=== PATIENT | female | born 1960 | race Caucasian/White ===

== ENCOUNTER 2025-01-21 07:05 | Inpatient (IN) | payer MEDICAID, MEDICARE ==
[~2025-01-21] VITALS: Ht 162.6 cm; Wt 57.6 kg
[2025-01-21 07:50] LABS: HEMATOCRIT. 26.5 % (36.0-48.0); HEMOGLOBIN. 8.2 g/dL (12.0-16.0); MEAN CORPUSCULAR HEMOGLOBIN 21.9 pg (28.0-32.0); MEAN CORPUSCULAR VOLUME 70.4 fL (81.0-99.0); MEAN PLATELET VOLUME 7.2 fl (7.4-10.4); PLATELET 725 x1000/uL (130-400); RED BLOOD CELL COUNT 3.76 mill/uL (4.2-5.4); RED CELL DISTRIBUTION WIDTH 19.8 % (11.6-14.6); WHITE BLOOD COUNT 24.6 x1000/uL (4.5-11.0)
[2025-01-21 08:04] LABS: CARBON DIOXIDE 24 mEq/L (21-32); CHLORIDE 97 mEq/L (98-107); POTASSIUM 3.1 mEq/L (3.5-5.1); SODIUM 136 mEq/L (136-145)
[2025-01-21 08:05] LABS: CALCIUM 9.4 mg/dL (8.7-10.4)
[2025-01-21 08:09] LABS: CREATININE 1.4 mg/dL (0.6-1.0)
[2025-01-21 08:10] LABS: DIFFERENTIAL COMMENT 1; GLUCOSE 216 mg/dL (70-105); UREA NITROGEN BLOOD 40 mg/dL (9-23)
[2025-01-21 08:11] LABS: ALANINE AMINOTRANSFERASE < 7 IU/L (10-49); TROPONIN I HIGH SENSITIVITY 23 ng/L (3.0-34)
[2025-01-21 08:12] LABS: ALBUMIN 3.4 g/dL (3.2-4.8); ASPARTATE AMINOTRANSFERASE 9 IU/L (<34); BILIRUBIN TOTAL 0.3 mg/dL (0.1-1.0); PROTEIN TOTAL 7.2 g/dL (6.0-8.3)
[2025-01-21 08:18] LABS: BILIRUBIN DIRECT < 0.1 mg/dL (<=3.0)
[2025-01-21] MEDS: VANCOMYCIN 1G PREMIX 200 ML IV STA (08:51)
[2025-01-21] MEDS: PIPERACILLIN/TAZO 3.375G/100ML 100 ML IV STA (08:51)
[2025-01-21 10:56] LABS: ANISOCYTOSIS 2+; MICROCYTOSIS 1+; NUCLEATED RED BLOOD CELLS 1 /100 WBC; PLATELET ESTIMATE MARKEDLY INCREASED
[2025-01-21] MEDS ORDERED: MORPHINE SULFATE 2 MG/ML INJ (NOT FOR IM USE) IV PRN (11:00)
[2025-01-21] MEDS ORDERED: IPRATROPIUM/ALBUTEROL 0.5-3(2.5)MG/3ML NEB NEB PRN (11:00)
[2025-01-21] MEDS ORDERED: ZOLPIDEM TARTRATE 5MG TABLET PO PRN (11:00)
[2025-01-21] MEDS ORDERED: MAGNESIUM/ALUMINUM HYDROXIDE/SIMETHICONE 30ML UDC PO PRN (11:00)
[2025-01-21] MEDS ORDERED: DEXTROSE 50% WATER 50ML SYRINGE IV PRN (11:00)
[2025-01-21] MEDS ORDERED: ONDANSETRON HCL 4MG/2ML INJ IV PRN (11:00)
[2025-01-21 11:05] VITALS: BP 129/60; PULSE 78; RESP 18; TEMP 36.8
[2025-01-21] MEDS ORDERED: NALOXONE HCL 0.4MG/ML VIAL IV PRN (11:45)
[2025-01-21 12:00] VITALS: BP 140/66; PULSE 73; RESP 14; TEMP 37; O2SAT 97
[2025-01-21] MEDS ORDERED: VANCOMYCIN 1.5GM/250ML 250 ML IV NR (12:15)
[2025-01-21] MEDS: INSULIN LISPRO 100 UNITS/ML SUBCUT SCH (12:15)
[2025-01-21] MEDS: SODIUM CHLORIDE 0.9% 1,000 ML IV SCH (12:23)
[2025-01-21] MEDS: ENOXAPARIN 40MG/0.4ML SYR SUBCUT SCH (12:37)
[2025-01-21] MEDS: POTASSIUM CHLORIDE 20MEQ TABLET SR PO NR (12:37)
[2025-01-21] MEDS: BLOOD SUGAR DIAGNOSTIC STRIP TEST SCH (12:46)
[2025-01-21] MEDS: PIPERACILLIN/TAZO 3.375G/50ML 50 ML IV SCH (14:46)
[2025-01-21 14:53] LABS: HEPATITIS B SURFACE ANTIGEN NEGATIVE (Negative)
[2025-01-21 15:14] LABS: HEPATITIS C AB NON REACTIVE (Neg) (Negative)
[2025-01-21] MEDS: HYDROCODONE/ACETAMINOPHEN 5/325MG TABLET PO PRN (15:46)
[2025-01-21 16:00] VITALS: BP 138/67; PULSE 87; RESP 17; TEMP 36.8; O2SAT 97
[2025-01-21] MEDS: VANCOMYCIN 1.5GM/250ML 250 ML IV NR (18:31)
[2025-01-21 19:13] LABS: CLARITY URINE CLOUDY (CLEAR); COLOR URINE YELLOW (YELLOW); GLUCOSE URINE NEGATIVE (NEGATIVE); KETONES URINE NEGATIVE (NEGATIVE); LEUKOCYTE ESTERASE URINE 3+ (NEGATIVE); NITRITE URINE NEGATIVE (NEGATIVE); OCCULT BLOOD URINE 1+ (NEGATIVE); PH URINE 5.5 (4.5-8.0); PROTEIN URINE 2+ (NEGATIVE); SPECIFIC GRAVITY URINE 1.015 (1.005-1.030)
[2025-01-21 19:20] LABS: *AMPHETAMINES SCREEN URINE NEGATIVE (NEGATIVE); *BARBITURATES SCREEN URINE NEGATIVE (NEGATIVE); *BENZODIAZEPINES SCREEN URINE NEGATIVE (NEGATIVE)
[2025-01-21 19:21] LABS: *COCAINE SCREEN URINE NEGATIVE (NEGATIVE); CANNABINOID URINE SCREEN NEGATIVE (NEGATIVE); ECSTASY MDMA SCREEN URINE NEGATIVE (NEGATIVE); METHADONE URINE SCREEN NEGATIVE (NEGATIVE); OPIATES URINE SCREEN NEGATIVE (NEGATIVE); PHENCYCLIDINE URINE SCREEN NEGATIVE (NEGATIVE)
[2025-01-21 19:28] LABS: WBC URINE 15-25 /hpf (0-2)
[2025-01-21 19:29] LABS: BACTERIA URINE 4+; SQUAMOUS EPITHELIAL CELL URINE 1+ /lpf (RARE/1+)
[2025-01-21 20:00] VITALS: BP 136/73; PULSE 91; RESP 19; TEMP 36.4; O2SAT 95
[2025-01-22] VITALS: BP 133/78; PULSE 77; RESP 18; TEMP 36.7; O2SAT 95
[2025-01-22 04:00] VITALS: BP 128/69; PULSE 89; RESP 19; TEMP 36.2; O2SAT 96
[2025-01-22 08:00] VITALS: BP 140/51; PULSE 87; RESP 19; TEMP 36.3; O2SAT 97
[2025-01-22] MEDS: PANTOPRAZOLE SODIUM 40 MG/VIAL IV SCH (09:00)
[2025-01-22 12:00] VITALS: BP 133/78; PULSE 88; RESP 17; TEMP 36.4; O2SAT 98
[2025-01-22] MEDS ORDERED: VANCOMYCIN 1G PREMIX 200 ML IV SCH (13:00)
[2025-01-22 14:12] LABS: HEMATOCRIT. 25.3 % (36.0-48.0); HEMOGLOBIN. 7.9 g/dL (12.0-16.0); MEAN CORPUSCULAR HEMOGLOBIN 22.2 pg (28.0-32.0); MEAN CORPUSCULAR HGB CONC 31.2 g/dL (31.0-37.0); MEAN CORPUSCULAR VOLUME 71.2 fL (81.0-99.0); MEAN PLATELET VOLUME 6.9 fl (7.4-10.4); RED BLOOD CELL COUNT 3.55 mill/uL (4.2-5.4); RED CELL DISTRIBUTION WIDTH 19.8 % (11.6-14.6)
[2025-01-22 14:18] LABS: CALCIUM 8.5 mg/dL (8.7-10.4)
[2025-01-22 14:23] LABS: CREATININE 1.3 mg/dL (0.6-1.0)
[2025-01-22 14:42] LABS: POTASSIUM 2.7 mEq/L (3.5-5.1)
[2025-01-22 14:43] LABS: DIFFERENTIAL COMMENT 1
[2025-01-22] MEDS ORDERED: POTASSIUM CHLORIDE 40 MEQ in DEXT 5% WATER 230 ML IV ONE (15:45)
[2025-01-22 16:00] VITALS: BP 137/81; PULSE 87; RESP 19; TEMP 36.4; O2SAT 99
[2025-01-22] MEDS ORDERED: KCL 20MEQ/100ML X 2 FOR TOTAL KCL 40MEQ/200ML IV SCH (16:30)
[2025-01-22 17:38] LABS: ANISOCYTOSIS 1+; HYPOCHROMASIA 1+; MICROCYTOSIS 2+; PLATELET ESTIMATE MARKEDLY INCREASED
[2025-01-22 17:40] LABS: PLATELET 601 x1000/uL (130-400)
[2025-01-22] MEDS: KCL 20MEQ/100ML X 2 FOR TOTAL KCL 40MEQ/200ML IV SCH (17:49)
[2025-01-22] MEDS: VANCOMYCIN 750MG/250ML 250 ML IV SCH (17:50)
[2025-01-22 18:31] LABS: PHOSPHORUS 4.3 mg/dL (2.5-4.9)
[2025-01-22 18:41] LABS: CREATINE KINASE < 15 IU/L (34-145)
[2025-01-22 20:00] VITALS: BP 119/66; PULSE 90; RESP 18; TEMP 36.8; O2SAT 91
[2025-01-22] MEDS: IOHEXOL-350 100 ML BOTTLE ONE (23:13)
[2025-01-23] VITALS (18 sets, daily range): BP systolic 130–183; BP diastolic 66–117; PULSE 72–103; RESP 16–32; TEMP 36.1–36.8; O2SAT 91–99
[2025-01-23 06:08] LABS: HEMATOCRIT. 22.7 % (36.0-48.0); HEMOGLOBIN. 7.4 g/dL (12.0-16.0); MEAN CORPUSCULAR HEMOGLOBIN 23.1 pg (28.0-32.0); MEAN CORPUSCULAR HGB CONC 32.6 g/dL (31.0-37.0); MEAN CORPUSCULAR VOLUME 70.7 fL (81.0-99.0); MEAN PLATELET VOLUME 7.1 fl (7.4-10.4); PLATELET 517 x1000/uL (130-400); RED BLOOD CELL COUNT 3.21 mill/uL (4.2-5.4); RED CELL DISTRIBUTION WIDTH 19.6 % (11.6-14.6)
[2025-01-23 06:25] LABS: POTASSIUM 2.9 mEq/L (3.5-5.1)
[2025-01-23 06:26] LABS: CALCIUM 8.6 mg/dL (8.7-10.4)
[2025-01-23 06:31] LABS: CREATININE 1.3 mg/dL (0.6-1.0)
[2025-01-23 07:18] LABS: DIFFERENTIAL COMMENT 1; WHITE BLOOD COUNT 49.4 x1000/uL (4.5-11.0)
[2025-01-23 08:35] LABS: ANISOCYTOSIS 1+; MICROCYTOSIS 2+; PLATELET ESTIMATE INCREASED
[2025-01-23 08:58] LABS: INR 1.3; PROTHROMBIN TIME 13.5 sec (9.6-11.0)
[2025-01-23] MEDS ORDERED: LIDOCAINE HCL 1% 10 MG/ML 10ML VIAL ONE (10:06)
[2025-01-23] MEDS ORDERED: FENTANYL CITRATE/PF 50MCG/ML 2ML VIAL ONE (10:31)
[2025-01-23] MEDS: KCL 20MEQ/100ML PREMIX 100 ML IV SCH (11:00)
[2025-01-23] MEDS: LIDOCAINE HCL 1% 10 MG/ML 10ML VIAL ONE (11:05)
[2025-01-23 12:04] LABS: PHOSPHORUS 4.3 mg/dL (2.5-4.9)
[2025-01-24] VITALS: BP 138/70; PULSE 78; RESP 19; TEMP 36; O2SAT 94
[2025-01-24 04:00] VITALS: BP 129/80; PULSE 93; RESP 18; TEMP 36.1; O2SAT 97
[2025-01-24 06:32] LABS: CARBON DIOXIDE 19 mEq/L (21-32); CHLORIDE 111 mEq/L (98-107); POTASSIUM 3.7 mEq/L (3.5-5.1); SODIUM 141 mEq/L (136-145)
[2025-01-24 06:34] LABS: CALCIUM 8.9 mg/dL (8.7-10.4)
[2025-01-24 06:38] LABS: CREATININE 1.1 mg/dL (0.6-1.0); GLUCOSE 85 mg/dL (70-105); UREA NITROGEN BLOOD 33 mg/dL (9-23)
[2025-01-24 06:40] LABS: PHOSPHORUS 3.9 mg/dL (2.5-4.9)
[2025-01-24 07:16] LABS: HEMATOCRIT. 23.9 % (36.0-48.0); HEMOGLOBIN. 7.5 g/dL (12.0-16.0); MEAN CORPUSCULAR HEMOGLOBIN 22.7 pg (28.0-32.0); MEAN CORPUSCULAR HGB CONC 31.4 g/dL (31.0-37.0); MEAN CORPUSCULAR VOLUME 72.3 fL (81.0-99.0); MEAN PLATELET VOLUME 7.2 fl (7.4-10.4); PLATELET 541 x1000/uL (130-400); RED BLOOD CELL COUNT 3.31 mill/uL (4.2-5.4); RED CELL DISTRIBUTION WIDTH 19.9 % (11.6-14.6); WHITE BLOOD COUNT 37.6 x1000/uL (4.5-11.0)
[2025-01-24 07:18] LABS: DIFFERENTIAL COMMENT 1
[2025-01-24 08:00] VITALS: BP 139/76; PULSE 77; RESP 16; TEMP 36.6; O2SAT 95
[2025-01-24] MEDS: VANCOMYCIN 500MG/100ML IV SCH (10:52)
[2025-01-24 12:00] VITALS: BP 157/83; PULSE 83; RESP 18; TEMP 36.6; O2SAT 95
[2025-01-24 15:27] LABS: ANISOCYTOSIS 2+; MICROCYTOSIS 2+; PLATELET ESTIMATE INCREASED
[2025-01-24 16:00] VITALS: BP 174/89; PULSE 97; RESP 18; TEMP 36.7; O2SAT 95
[2025-01-24] MEDS: CLONIDINE 0.1MG TABLET PO PRN (17:01)
[2025-01-24 20:00] VITALS: BP 138/70; PULSE 89; RESP 16; TEMP 36.2; O2SAT 95
[2025-01-25] VITALS: BP 151/57; PULSE 16; RESP 16; TEMP 36.1; O2SAT 95
[2025-01-25 04:00] VITALS: BP 137/75; PULSE 16; RESP 16; TEMP 36.3; O2SAT 95
[2025-01-25 08:00] VITALS: BP 172/78; PULSE 88; RESP 18; TEMP 36.7; O2SAT 100
[2025-01-25] MEDS: HYDRALAZINE 20MG/ML VIAL IV PRN (11:04)
[2025-01-25 16:00] VITALS: BP 150/72; PULSE 95; RESP 18; TEMP 36.4; O2SAT 96
[2025-01-25 20:00] VITALS: BP 148/82; PULSE 81; RESP 16; TEMP 36.6; O2SAT 96
[2025-01-25 23:54] LABS: HEMATOCRIT. 22.4 % (36.0-48.0); MEAN CORPUSCULAR HEMOGLOBIN 21.6 pg (28.0-32.0); MEAN CORPUSCULAR HGB CONC 30.9 g/dL (31.0-37.0); MEAN CORPUSCULAR VOLUME 69.9 fL (81.0-99.0); MEAN PLATELET VOLUME 6.9 fl (7.4-10.4); PLATELET 485 x1000/uL (130-400); POTASSIUM 3.2 mEq/L (3.5-5.1); RED BLOOD CELL COUNT 3.21 mill/uL (4.2-5.4); RED CELL DISTRIBUTION WIDTH 20.3 % (11.6-14.6); WHITE BLOOD COUNT 18.1 x1000/uL (4.5-11.0)
[2025-01-25 23:55] LABS: CALCIUM 8.8 mg/dL (8.7-10.4)
[2025-01-26] VITALS: BP 152/62; PULSE 87; RESP 16; TEMP 36.3; O2SAT 97
[2025-01-26 00:15] LABS: DIFFERENTIAL COMMENT 1
[2025-01-26 00:18] LABS: HEMOGLOBIN. 6.9 g/dL (12.0-16.0)
[2025-01-26 03:18] LABS: ANISOCYTOSIS 3+; HYPOCHROMASIA 2+; MICROCYTOSIS 3+
[2025-01-26 03:19] LABS: PLATELET ESTIMATE SLIGHTLY INCREASED
[2025-01-26 04:00] VITALS: BP 164/90; PULSE 73; RESP 16; TEMP 36.3; O2SAT 97
[2025-01-26 04:09] VITALS: BP 164/90; PULSE 73; RESP 16; TEMP 36.3; O2SAT 96
[2025-01-26 07:25] LABS: CHLORIDE 110 mEq/L (98-107); POTASSIUM 3.4 mEq/L (3.5-5.1); SODIUM 140 mEq/L (136-145)
[2025-01-26 07:26] LABS: CALCIUM 8.9 mg/dL (8.7-10.4); CARBON DIOXIDE 19 mEq/L (21-32)
[2025-01-26 07:31] LABS: CREATININE 0.9 mg/dL (0.6-1.0); GLUCOSE 85 mg/dL (70-105); UREA NITROGEN BLOOD 19 mg/dL (9-23)
[2025-01-26 08:00] VITALS: BP 114/60; PULSE 64; RESP 14; TEMP 36.1; O2SAT 96
[2025-01-26] MEDS: POTASSIUM CHLORIDE 20MEQ TABLET SR PO NR (11:45)
[2025-01-26 12:00] VITALS: BP 158/81; PULSE 87; RESP 18; TEMP 36.9; O2SAT 97
[2025-01-26 16:00] VITALS: BP 173/80; PULSE 63; RESP 18; TEMP 36.6; O2SAT 97
[2025-01-26 16:38] LABS: HEMOGLOBIN. 7.8 g/dL (12.0-16.0); MEAN CORPUSCULAR HGB CONC 30.2 g/dL (31.0-37.0); MEAN PLATELET VOLUME 7.2 fl (7.4-10.4); PLATELET 584 x1000/uL (130-400); RED BLOOD CELL COUNT 3.56 mill/uL (4.2-5.4); RED CELL DISTRIBUTION WIDTH 20.1 % (11.6-14.6); WHITE BLOOD COUNT 22.3 x1000/uL (4.5-11.0)
[2025-01-26 16:39] LABS: DIFFERENTIAL COMMENT 1
[2025-01-26 17:01] LABS: ANISOCYTOSIS 1+; HYPOCHROMASIA 1+; MICROCYTOSIS 2+; PLATELET ESTIMATE INCREASED
[2025-01-26] MEDS: HYDROCODONE/ACETAMINOPHEN 5/325MG TABLET PO PRN (19:41)
[2025-01-26] MEDS: LACTOBACILLUS GG CAPSULE PO SCH (19:42)
[2025-01-27 06:49] LABS: CHLORIDE 114 mEq/L (98-107); POTASSIUM 3.9 mEq/L (3.5-5.1)
[2025-01-27 06:50] LABS: CARBON DIOXIDE 19 mEq/L (21-32); SODIUM 143 mEq/L (136-145)
[2025-01-27 06:51] LABS: CALCIUM 8.3 mg/dL (8.7-10.4); HEMOGLOBIN. 7.3 g/dL (12.0-16.0); MEAN CORPUSCULAR HGB CONC 30.5 g/dL (31.0-37.0); MEAN CORPUSCULAR VOLUME 72.1 fL (81.0-99.0); MEAN PLATELET VOLUME 6.8 fl (7.4-10.4); PLATELET 429 x1000/uL (130-400); RED BLOOD CELL COUNT 3.33 mill/uL (4.2-5.4); RED CELL DISTRIBUTION WIDTH 20.2 % (11.6-14.6); WHITE BLOOD COUNT 16.9 x1000/uL (4.5-11.0)
[2025-01-27 06:55] LABS: CREATININE 0.7 mg/dL (0.6-1.0); GLUCOSE 76 mg/dL (70-105)
[2025-01-27 06:56] LABS: UREA NITROGEN BLOOD 16 mg/dL (9-23)
[2025-01-27 07:22] LABS: DIFFERENTIAL COMMENT 1
[2025-01-27 08:00] VITALS: BP 156/57; PULSE 100; RESP 18; TEMP 36.7; O2SAT 97
[2025-01-27] MEDS ORDERED: SULF1TAB48 MT (11:55)
[2025-01-27 12:00] VITALS: BP 122/55; PULSE 99; RESP 18; TEMP 36.6; O2SAT 99
[2025-01-27 16:05] VITALS: BP_SYST 129; PULSE 87; TEMP 97.7; O2SAT 61
[2025-01-28 14:04] LABS: ANISOCYTOSIS 2+; MICROCYTOSIS 1+; OVALOCYTES 1+; PLATELET ESTIMATE SLIGHTLY INCREASED
== END 2025-01-27 17:05 | disposition home health service (06) | DRG 871 ==
LOC: ER 07:37 → EDBEDREQ 08:15 → 5WST 09:06 → EDBEDREQTM 09:13 → EDBEDREQ 09:13
PROVIDERS: ADMIT Internal Medicine; ATTEND Internal Medicine
PROC: 0F9030Z Drainage of Liver with Drainage Device, Percutaneous Approach (ICD-10-PCS; principal; 2025-01-23)
PROC: 0T9030Z Drainage of Right Kidney with Drainage Device, Percutaneous Approach (ICD-10-PCS; 2025-01-23)
DX: A41.9 Sepsis, unspecified organism (principal); N15.1 Renal and perinephric abscess; N17.9 Acute kidney failure, unspecified; N39.0 Urinary tract infection, site not specified; R18.8 Other ascites; I31.39 Other pericardial effusion (noninflammatory); K57.30 Diverticulosis of large intestine without perforation or abscess without bleeding; E87.6 Hypokalemia; N20.0 Calculus of kidney; R63.0 Anorexia; I12.9 Hypertensive chronic kidney disease with stage 1 through stage 4 chronic kidney disease, or unspecified chronic kidney disease; N18.9 Chronic kidney disease, unspecified; D50.9 Iron deficiency anemia, unspecified; E11.22 Type 2 diabetes mellitus with diabetic chronic kidney disease; B96.20 Unspecified Escherichia coli [E. coli] as the cause of diseases classified elsewhere; E63.9 Nutritional deficiency, unspecified; I25.10 Atherosclerotic heart disease of native coronary artery without angina pectoris; G31.9 Degenerative disease of nervous system, unspecified; Z87.442 Personal history of urinary calculi
CPT/HCPCS: 36415; 71260; 74176; 74177; 77012; 80048; 80076; 80202; 80305; 81003; 82550; 82962; 83021; 83036; 83735; 84100; 84145; 84484; 85025; 85660; 86705; 86850; 86870; 86900; 86920; 87077; 87186; 87340; 93005; 93970; 99152; 99153; 99285; A4606; C1729; C1760; C1769; J0360; J1650; J2003; J2270; J2470; J2543; J3010; J3370; J3480; J7030; L8514; Q9967; G0500

== ENCOUNTER 2025-04-15 09:04 | Inpatient (IN) | payer MEDICARE, OTHER ==
[~2025-04-15] VITALS: Ht 144.8 cm; Wt 41.7 kg
[~2025-04-15 09:04] MED LIST: SULF1TAB48 MT
[2025-04-15 09:59] LABS: BASOPHILS % 0.4 % (0.0-2.0); EOSINOPHILS % 0.6 % (0.0-5.0); HEMATOCRIT. 30.4 % (36.0-48.0); HEMOGLOBIN. 9.8 g/dL (12.0-16.0); LYMPHOCYTES % 15.7 % (20.0-50.0); MEAN CORPUSCULAR HEMOGLOBIN 26.5 pg (28.0-32.0); MEAN CORPUSCULAR HGB CONC 32.3 g/dL (31.0-37.0); MEAN PLATELET VOLUME 7.2 fl (7.4-10.4); MONOCYTES % 7.6 % (2.0-8.0); NEUTROPHILS % 75.7 % (40.0-76.0); PLATELET 447 x1000/uL (130-400); RED BLOOD CELL COUNT 3.71 mill/uL (4.2-5.4); RED CELL DISTRIBUTION WIDTH 15.9 % (11.6-14.6); WHITE BLOOD COUNT 10.3 x1000/uL (4.5-11.0)
[2025-04-15 10:10] LABS: INR 1.1; PARTIAL THROMBOPLASTIN TIME 30.3 sec (23.4-31.0); PROTHROMBIN TIME 11.9 sec (9.6-11.0)
[2025-04-15 10:17] LABS: CHLORIDE 101 mEq/L (98-107); POTASSIUM 3.2 mEq/L (3.5-5.1); SODIUM 138 mEq/L (136-145)
[2025-04-15 10:19] LABS: CALCIUM 9.8 mg/dL (8.7-10.4); CARBON DIOXIDE 25 mEq/L (21-32)
[2025-04-15 10:24] LABS: CREATININE 0.9 mg/dL (0.6-1.0); GLUCOSE 99 mg/dL (70-105); UREA NITROGEN BLOOD 28 mg/dL (9-23)
[2025-04-15 10:25] LABS: ALANINE AMINOTRANSFERASE < 7 IU/L (10-49); ASPARTATE AMINOTRANSFERASE 12 IU/L (<34)
[2025-04-15 10:26] LABS: ALBUMIN 4.6 g/dL (3.2-4.8); BILIRUBIN DIRECT < 0.1 mg/dL (<=3.0); BILIRUBIN TOTAL 0.3 mg/dL (0.1-1.0); PROTEIN TOTAL 8.6 g/dL (6.0-8.3)
[2025-04-15] MEDS: POTASSIUM CHLORIDE 20MEQ/PACKET PO ONE (11:01)
[2025-04-15 12:23] LABS: CLARITY URINE CLEAR (CLEAR); COLOR URINE YELLOW (YELLOW); GLUCOSE URINE NEGATIVE (NEGATIVE); KETONES URINE NEGATIVE (NEGATIVE); LEUKOCYTE ESTERASE URINE TRACE (NEGATIVE); NITRITE URINE NEGATIVE (NEGATIVE); OCCULT BLOOD URINE TRACE (NEGATIVE); PH URINE 5.5 (4.5-8.0); PROTEIN URINE 2+ (NEGATIVE); SPECIFIC GRAVITY URINE 1.015 (1.005-1.030)
[2025-04-15 12:33] LABS: SQUAMOUS EPITHELIAL CELL URINE 1+ /lpf (RARE/1+)
[2025-04-15 12:34] LABS: MUCUS URINE TRACE /lpf (< = 2+)
[2025-04-15 12:35] LABS: BACTERIA URINE TRACE; RBC URINE 0-2 /hpf (0-2)
[2025-04-15] MEDS ORDERED: ONDANSETRON HCL 4MG/2ML INJ IV PRN (15:30)
[2025-04-15] MEDS ORDERED: IPRATROPIUM/ALBUTEROL 0.5-3(2.5)MG/3ML NEB HHN PRN (15:30)
[2025-04-15] MEDS ORDERED: CLONIDINE 0.1MG TABLET PO PRN (15:30)
[2025-04-15] MEDS ORDERED: POTASSIUM CHLORIDE 20MEQ TABLET SR PO ONE (15:30)
[2025-04-15] MEDS ORDERED: DOCUSATE SODIUM 100MG CAPSULE PO PRN (15:30)
[2025-04-15] MEDS ORDERED: HYDROCODONE/ACETAMINOPHEN 5/325MG TABLET PO PRN (15:30)
[2025-04-15] MEDS ORDERED: ACETAMINOPHEN 325MG TABLET PO PRN (15:30)
[2025-04-15] MEDS ORDERED: NALOXONE HCL 0.4MG/ML VIAL IV PRN (15:45)
[2025-04-15 16:52] VITALS: BP 169/71; PULSE 70; RESP 18; TEMP 36.8
[2025-04-15] MEDS: VANCOMYCIN 1GM/200ML PMX (BAXTER) IV NR (17:33)
[2025-04-15 20:00] VITALS: BP 149/75; PULSE 69; RESP 18; TEMP 36.6; O2SAT 97
[2025-04-15] MEDS: PIPERACILLIN/TAZO 3.375G/50ML 50 ML IV SCH (21:26)
[2025-04-15 21:36] LABS: HEPATITIS B SURFACE ANTIGEN NEGATIVE (Negative)
[2025-04-15 21:58] LABS: HEPATITIS C AB NON REACTIVE (Neg) (Negative)
[2025-04-16] VITALS: BP 146/68; PULSE 67; RESP 18; TEMP 36.7; O2SAT 98
[2025-04-16 04:00] VITALS: BP 136/61; PULSE 73; RESP 17; TEMP 37.1; O2SAT 97
[2025-04-16] MEDS: VANCOMYCIN 500MG PREMIX 100 ML IV SCH ×2 (05:11→17:34)
[2025-04-16 08:00] VITALS: BP 133/65; PULSE 68; RESP 19; TEMP 36.4; O2SAT 99
[2025-04-16] MEDS ORDERED: IOHEXOL-350 100 ML BOTTLE ONE (09:26)
[2025-04-16 12:00] VITALS: BP 134/72; PULSE 75; RESP 18; TEMP 36.3; O2SAT 99
[2025-04-16 16:00] VITALS: BP 128/67; PULSE 70; RESP 19; TEMP 36.6; O2SAT 98
[2025-04-16 16:03] LABS: BASOPHILS % 0.4 % (0.0-2.0); EOSINOPHILS % 1.8 % (0.0-5.0); HEMATOCRIT. 28.2 % (36.0-48.0); HEMOGLOBIN. 9.2 g/dL (12.0-16.0); LYMPHOCYTES % 13.4 % (20.0-50.0); MEAN CORPUSCULAR HEMOGLOBIN 26.3 pg (28.0-32.0); MEAN CORPUSCULAR HGB CONC 32.7 g/dL (31.0-37.0); MEAN CORPUSCULAR VOLUME 80.5 fL (81.0-99.0); MEAN PLATELET VOLUME 7.4 fl (7.4-10.4); MONOCYTES % 8.9 % (2.0-8.0); NEUTROPHILS % 75.5 % (40.0-76.0); PLATELET 403 x1000/uL (130-400)
[2025-04-16 16:11] LABS: CARBON DIOXIDE 24 mEq/L (21-32); CHLORIDE 101 mEq/L (98-107); POTASSIUM 3.6 mEq/L (3.5-5.1); SODIUM 136 mEq/L (136-145)
[2025-04-16 16:12] LABS: CALCIUM 9.3 mg/dL (8.7-10.4)
[2025-04-16 16:16] LABS: CREATININE 0.8 mg/dL (0.6-1.0); GLUCOSE 121 mg/dL (70-105)
[2025-04-16 16:17] LABS: UREA NITROGEN BLOOD 26 mg/dL (9-23)
[2025-04-16 16:18] LABS: ALANINE AMINOTRANSFERASE < 7 IU/L (10-49); ALBUMIN 3.8 g/dL (3.2-4.8); ASPARTATE AMINOTRANSFERASE 10 IU/L (<34)
[2025-04-16 16:19] LABS: BILIRUBIN TOTAL 0.2 mg/dL (0.1-1.0); PROTEIN TOTAL 7.3 g/dL (6.0-8.3)
[2025-04-16 20:00] VITALS: BP 113/62; PULSE 74; RESP 19; TEMP 35.8; O2SAT 99
[2025-04-17] VITALS: BP 135/71; PULSE 67; RESP 20; TEMP 37.1; O2SAT 97
[2025-04-17 03:48] LABS: BASOPHILS % 0.5 % (0.0-2.0); EOSINOPHILS % 2.8 % (0.0-5.0); HEMATOCRIT. 26.8 % (36.0-48.0); HEMOGLOBIN. 8.9 g/dL (12.0-16.0); LYMPHOCYTES % 14.6 % (20.0-50.0); MEAN CORPUSCULAR HEMOGLOBIN 26.5 pg (28.0-32.0); MEAN CORPUSCULAR HGB CONC 33.1 g/dL (31.0-37.0); MEAN PLATELET VOLUME 7.4 fl (7.4-10.4); MONOCYTES % 11.9 % (2.0-8.0); NEUTROPHILS % 70.2 % (40.0-76.0); PLATELET 390 x1000/uL (130-400); RED BLOOD CELL COUNT 3.35 mill/uL (4.2-5.4); WHITE BLOOD COUNT 9.3 x1000/uL (4.5-11.0)
[2025-04-17 03:57] LABS: CALCIUM 9.2 mg/dL (8.7-10.4); POTASSIUM 3.4 mEq/L (3.5-5.1)
[2025-04-17 04:00] VITALS: BP 132/63; PULSE 68; RESP 19; TEMP 36.7; O2SAT 96
[2025-04-17 04:40] LABS: THYROID STIMULATING HORMONE 2.06 uIU/mL (0.55-4.78)
[2025-04-17 08:00] VITALS: BP 125/57; PULSE 68; RESP 16; TEMP 36.4; O2SAT 98
[2025-04-17 12:00] VITALS: BP 127/71; PULSE 71; RESP 16; TEMP 36; O2SAT 100
[2025-04-17 16:00] VITALS: BP 138/64; PULSE 73; RESP 16; TEMP 36.7; O2SAT 100
[2025-04-17] MEDS: ACETAMINOPHEN 325MG TABLET PO PRN (18:50)
[2025-04-17 20:00] VITALS: BP 139/70; PULSE 18; RESP 18; TEMP 36.2; O2SAT 98
[2025-04-18] VITALS: BP 126/66; PULSE 59; RESP 20; TEMP 36.2; O2SAT 98
[2025-04-18 04:00] VITALS: BP 137/71; PULSE 62; RESP 19; TEMP 36.2; O2SAT 98
[2025-04-18] MEDS: VANCOMYCIN 750MG/150ML (BAXTER) IV SCH (05:00)
[2025-04-18 08:00] VITALS: BP 133/75; PULSE 71; RESP 16; TEMP 36.5; O2SAT 97
[2025-04-18 12:00] VITALS: BP 120/69; PULSE 75; RESP 18; TEMP 36.4; O2SAT 98
[2025-04-18 16:00] VITALS: BP 124/68; PULSE 72; RESP 16; TEMP 36.6; O2SAT 100
[2025-04-18 20:00] VITALS: BP 133/70; PULSE 77; RESP 18; TEMP 37; O2SAT 99
[2025-04-19] VITALS: BP 132/70; PULSE 75; RESP 18; TEMP 36.4; O2SAT 96
[2025-04-19 04:00] VITALS: BP 124/64; PULSE 72; RESP 18; TEMP 36.3; O2SAT 95
[2025-04-19 08:00] VITALS: BP 129/64; PULSE 67; RESP 19; TEMP 36.3; O2SAT 99
[2025-04-19 12:00] VITALS: BP 119/65; PULSE 69; RESP 18; TEMP 36.3; O2SAT 100
[2025-04-19 16:00] VITALS: BP 109/70; PULSE 68; RESP 19; TEMP 36.3; O2SAT 98
[2025-04-19 20:00] VITALS: BP 126/63; PULSE 70; RESP 16; TEMP 36.4; O2SAT 97
[2025-04-20] VITALS: BP 112/58; PULSE 74; RESP 19; TEMP 37.2; O2SAT 100
[2025-04-20 04:00] VITALS: BP 118/68; PULSE 65; RESP 16; TEMP 36.3; O2SAT 97
[2025-04-20 08:00] VITALS: BP 131/82; PULSE 79; RESP 16; TEMP 36.6; O2SAT 96
[2025-04-20 11:42] LABS: BASOPHILS % 0.9 % (0.0-2.0); DIFFERENTIAL COMMENT 0; EOSINOPHILS % 2.1 % (0.0-5.0); HEMATOCRIT. 27.6 % (36.0-48.0); HEMOGLOBIN. 9.1 g/dL (12.0-16.0); LYMPHOCYTES % 16.8 % (20.0-50.0); MEAN CORPUSCULAR HEMOGLOBIN 26.3 pg (28.0-32.0); MEAN CORPUSCULAR HGB CONC 33.1 g/dL (31.0-37.0); MEAN CORPUSCULAR VOLUME 79.3 fL (81.0-99.0); MONOCYTES % 7.8 % (2.0-8.0); NEUTROPHILS % 72.4 % (40.0-76.0); PLATELET 394 x1000/uL (130-400); RED BLOOD CELL COUNT 3.48 mill/uL (4.2-5.4); RED CELL DISTRIBUTION WIDTH 15.9 % (11.6-14.6)
[2025-04-20 11:52] LABS: CHLORIDE 107 mEq/L (98-107); POTASSIUM 3.7 mEq/L (3.5-5.1); SODIUM 141 mEq/L (136-145)
[2025-04-20 11:53] LABS: CALCIUM 9.2 mg/dL (8.7-10.4); CARBON DIOXIDE 26 mEq/L (21-32)
[2025-04-20 11:58] LABS: CREATININE 0.9 mg/dL (0.6-1.0); GLUCOSE 84 mg/dL (70-105); UREA NITROGEN BLOOD 17 mg/dL (9-23)
[2025-04-20 12:00] VITALS: PULSE 73; RESP 18; TEMP 36.4; O2SAT 99
[2025-04-20 12:00] LABS: PHOSPHORUS 2.8 mg/dL (2.5-4.9)
[2025-04-20] MEDS ORDERED: LIDOCAINE HCL 1% 10 MG/ML 10ML VIAL ONE (13:39)
[2025-04-20 16:00] VITALS: BP 179/79; PULSE 72; RESP 18; TEMP 36.6; O2SAT 96
[2025-04-20 20:00] VITALS: BP 134/68; PULSE 74; RESP 18; TEMP 36.6; O2SAT 96
[2025-04-21 03:53] VITALS: BP 114/55; PULSE 63; RESP 18; TEMP 36.3; O2SAT 97
[2025-04-21 07:55] LABS: CARBON DIOXIDE 26 mEq/L (21-32); CHLORIDE 105 mEq/L (98-107); POTASSIUM 3.5 mEq/L (3.5-5.1); SODIUM 139 mEq/L (136-145)
[2025-04-21 07:56] LABS: CALCIUM 9.3 mg/dL (8.7-10.4)
[2025-04-21 08:00] VITALS: BP 124/60; PULSE 72; RESP 18; TEMP 36.3; O2SAT 97
[2025-04-21 08:01] LABS: CREATININE 0.9 mg/dL (0.6-1.0); GLUCOSE 71 mg/dL (70-105); UREA NITROGEN BLOOD 14 mg/dL (9-23)
[2025-04-21 08:47] LABS: BASOPHILS % 1.1 % (0.0-2.0); DIFFERENTIAL COMMENT 0; EOSINOPHILS % 3.3 % (0.0-5.0); HEMOGLOBIN. 8.8 g/dL (12.0-16.0); LYMPHOCYTES % 23.1 % (20.0-50.0); MEAN CORPUSCULAR HEMOGLOBIN 26.6 pg (28.0-32.0); MEAN CORPUSCULAR HGB CONC 33.7 g/dL (31.0-37.0); MEAN CORPUSCULAR VOLUME 79.1 fL (81.0-99.0); MEAN PLATELET VOLUME 7.1 fl (7.4-10.4); MONOCYTES % 10.1 % (2.0-8.0); NEUTROPHILS % 62.4 % (40.0-76.0); PLATELET 395 x1000/uL (130-400); RED BLOOD CELL COUNT 3.29 mill/uL (4.2-5.4); RED CELL DISTRIBUTION WIDTH 15.7 % (11.6-14.6); WHITE BLOOD COUNT 7.7 x1000/uL (4.5-11.0)
[2025-04-21 18:41] VITALS: BP 128/64; PULSE 78; TEMP 98.9; O2SAT 98
== END 2025-04-21 19:11 | disposition home health service (06) | DRG 871 ==
LOC: ER 09:46 → EDBEDREQ 10:27 → 6EST 15:18
PROVIDERS: ADMIT Internal Medicine; ATTEND Internal Medicine
PROC: 02HV33Z Insertion of Infusion Device into Superior Vena Cava, Percutaneous Approach (ICD-10-PCS; principal; 2025-04-20)
PROC: B5181ZA Fluoroscopy of Superior Vena Cava using Low Osmolar Contrast, Guidance (ICD-10-PCS; 2025-04-20)
PROC: B548ZZA Ultrasonography of Superior Vena Cava, Guidance (ICD-10-PCS; 2025-04-20)
DX: A41.9 Sepsis, unspecified organism (principal); N15.1 Renal and perinephric abscess; N13.6 Pyonephrosis; R59.0 Localized enlarged lymph nodes; E87.6 Hypokalemia; D64.9 Anemia, unspecified; I10 Essential (primary) hypertension; E03.9 Hypothyroidism, unspecified; I48.91 Unspecified atrial fibrillation; K57.30 Diverticulosis of large intestine without perforation or abscess without bleeding; R01.1 Cardiac murmur, unspecified; E78.5 Hyperlipidemia, unspecified; I35.2 Nonrheumatic aortic (valve) stenosis with insufficiency; I25.10 Atherosclerotic heart disease of native coronary artery without angina pectoris; Z79.899 Other long term (current) drug therapy
CPT/HCPCS: 36415; 36573; 74177; 80048; 80053; 80061; 80076; 80202; 81003; 83036; 83605; 83735; 83880; 84100; 84145; 84443; 85025; 86705; 87340; 93005; 93306; 99285; C1725; J2003; J2543; J3370; Q9967

== ENCOUNTER → 2025-06-22 | Day surgery (SDC) | payer MEDICARE, MEDICAID ==
[~2025-06-22] MED LIST changes: +AMLO5TAB88 PO; +ATOR20TA65 MT; +FERR325T6 MT; +HYDR12.54 MT; +METO-396 PO; +REGADENOSON 0.4 MG/5 ML IV ONE; -SULF1TAB48 MT
== END | disposition home or self-care (01) ==
LOC: NM 08:26
PROVIDERS: ATTEND Internal Medicine
DX: I50.9 Heart failure, unspecified (principal); R06.09 Other forms of dyspnea
CPT/HCPCS: 93017; 78452; J2785; A9500

== ENCOUNTER → 2025-08-22 | Outpatient (CLI) | payer MEDICARE, MEDICAID ==
[~2025-08-22] MED LIST changes: -REGADENOSON 0.4 MG/5 ML IV ONE
== END | disposition home or self-care (01) ==
LOC: PVL 08:26
PROVIDERS: ATTEND Internal Medicine
DX: I35.0 Nonrheumatic aortic (valve) stenosis (principal); M54.2 Cervicalgia
CPT/HCPCS: 93880